=== PATIENT | female | born 1940 | race Hispanic/Latino ===

== ENCOUNTER 2019-07-10 10:05 | Outpatient (CLI) | payer MEDICARE ==
[2019-07-10 11:04] LABS: Blood Urea Nitrogen 9 mg/dL (7-17)
--- NOTE | 2019-07-10 13:39 | Cat Scan Report ---
CT CHEST WITH CONTRAST INDICATION / CLINICAL INFORMATION: R06.02 SHORTNESS OF BREATH. TECHNIQUE: Axial CT images were obtained through the chest after 100 cc of Omnipaque 350 IV contrast. Sagittal a nd coronal reformatted images. All CT scans at this location are performed using CT dose reduction fo r ALARA by means of automated exposure control. COMPARISON: None available. FINDINGS: HEART: No significant abnormality. THORACIC AORTA: No significant abnormality. MEDIASTINUM and TAO: No significant abnormality. LUNGS: No acute air space or interstitial disease. PLEURA: No significant pleural effusion. No pneumothorax. SKELETAL SYSTEM: Mild osteopenia and degenerative changes in the thoracic spine. UPPER ABDOMEN: No significant abnormality. ADDITIONAL FINDINGS: None. IMPRESSION: No significant abnormality. Signer Name: Chuck Pruett Jr, MD Signed: 07/10/2019 1:35 PM Workstation Name: [id number]
== END 2019-07-10 10:06 | disposition home or self-care (01) ==
LOC: CT 10:05
PROVIDERS: ATTEND Internal Medicine Hematology & Oncology
DX: R06.02 Shortness of breath (principal)
CPT/HCPCS: 36415; 71260; 82565; 84520; Q9967